=== PATIENT | female | born 1990 | race American Indian/Alaskan Native ===

== ENCOUNTER 2018-01-07 11:52 | Emergency (ER) | payer OTHER ==
[2018-01-07 13:40] LABS: Bilirubin,Urine NEG (Negative); Blood,Urine SM (Negative); Color,Urine Colorless (Yellow); Protein,Urine <15 mg/dL mg/dL (Negative); Urobilinogen,Urine < 2.0 mg/dL (<2.0); WBC,Urine < 1.0 /HPF (0.0-6.0)
[2018-01-07 13:43] LABS: HCG Qualitative,Urine Negative (Negative); RBC,Urine < 1.0 /HPF (0.0-6.0)
--- NOTE | 2018-01-07 14:13 | XRay Report ---
XRAY CHEST TWO VIEWS: 01/07/18 11:52:00 CLINICAL: Shortness of breath and cough. COMPARISON: None FINDINGS: Normal heart and pulmonary vasculature. The lungs are normally expanded and clear.Mild thoracic dextroscoliosis and otherwise normal bones. IMPRESSION: No acute cardiopulmonary process.
--- NOTE | 2018-01-07 14:18 | Emergency Department Report ---
Minor Respiratory - HPI Chief Complaint: Dyspnea/Respdistress Stated Complaint: CHEST PAIN/WEAK Time Seen by Provider: 01/07/18 13:00 Duration: 5 Days Severity: mild Minor Respiratory: Yes Able to Tolerate Fluids, Yes Cough, No Rhinorrhea, No Sore Throat, No Ear Pain, No Sick Contacts, No Hemoptysis, No Chest Pain, No Shortness of Breath, No Fever Other History: Patient states that she has had a nonproductive cough and some mild shortness of breath. The patient states there is little discomfort when she takes a deep breath. ED Review of Systems ROS: Stated complaint: CHEST PAIN/WEAK Other details as noted in HPI Comment: All other systems reviewed and negative ED Past Medical Hx - Past Medical History Previous Medical History?: No - Surgical History Past Surgical History?: No - Social History Smoking Status: Never Smoker - Medications Home Medications: Home Medications Medication Instructions Recorded Confirmed Last Taken Type Acetaminophen/Codeine [Tylenol #3] 1 tab PO Q6H PRN #12 tab 02/01/15 Unknown Rx Sulfamethoxazole/Trimethoprim 1 each PO Q12H #14 tablet 02/01/15 Unknown Rx [Bactrim DS TAB] ALBUTEROL Inhaler [ProAir HFA 2 puff IH QID PRN #1 inhalation 01/07/18 Unknown Rx Inhaler] predniSONE [Deltasone] 20 mg PO QDAY #5 tab 01/07/18 Unknown Rx Minor Respiratory Exam - Exam General: Vital signs noted. No distress. Alert and acting appropriately. HEENT: Yes Moist Mucous Membranes, No Pharyngeal Erythema, No Pharyngeal Exudates, No Rhinorrhea, No Conjuctival Injection, No Frontal Tenderness, No Maxillary Tenderness Ear: Neither TM Bulge, Neither TM Erythema, Neither EAC Pain, Neither EAC Discharge Neck: Yes Supple, No Adenopathy Lungs: Yes Good Air Exchange, No Wheezes, No Ronchi, No Stridor, No Cough, No Labored Respirations, No Retractions, No Use of Accessory Muscles, No Other Abnormal Lung Sounds Heart: Yes Regular, No Murmur Abdomen: Yes Normal Bowel Sounds, No Tenderness, No Peritoneal Signs Skin: No Rash, No Edema Neurologic: Alert and oriented, no deficits. Musculoskeletal: Unremarkable. ED Course Vital Signs 01/07/18 12:04 Temperature 99.2 F Pulse Rate 89 Respiratory 18 Rate Blood Pressure 140/77 O2 Sat by Pulse 99 Oximetry ED Medical Decision Making - Lab Data Lab Results 01/07/18 01/07/18 Range/Units 13:23 13:24 D-Dimer 222.70 (0-234) ng/mlDDU Urine Color Colorless (Yellow) Urine Turbidity Clear (Clear) Urine pH 7.0 (5.0-7.0) Ur Specific [place] 1.002 L (1.003-1.030) Urine Protein <15 mg/dl (Negative) mg/dL Urine Glucose (UA) Neg (Negative) mg/dL Urine Ketones Neg (Negative) mg/dL Urine Blood Sm (Negative) Urine Nitrite Neg (Negative) Urine Bilirubin Neg (Negative) Urine Urobilinogen < 2.0 (<2.0) mg/dL Ur Leukocyte Esterase Neg (Negative) Urine WBC (Auto) < 1.0 (0.0-6.0) /HPF Urine RBC (Auto) < 1.0 (0.0-6.0) /HPF U Epithel Cells (Auto) 1.0 (0-13.0) /HPF Urine HCG, Qual Negative (Negative) - EKG Data -: EKG Interpreted by Nc EKG shows normal: sinus rhythm, axis, intervals, QRS complexes, ST-T waves Rate: normal - EKG Data Interpretation: normal EKG - Radiology Data interpreted by vt: X-ray of the chest shows no acute process Critical care attestation.: If time is entered above; I have spent that time in minutes in the direct care of this critically ill patient, excluding procedure time. ED Disposition Clinical Impression: Acute bronchitis Qualifiers: Bronchitis organism: unspecified organism Qualified Code(s): J20.9 - Acute bronchitis, unspecified Disposition: DC- TO HOME OR SELFCARE Is pt being admited?: No Does the pt Need Aspirin: No Condition: Stable Instructions: Acute Bronchitis (ED) Referrals: PRIMARY CARE, [Primary Care Provider] - 3-5 Days Forms: Work/School Release Form(ED) Time of Disposition: 14:17
[2018-01-07 14:25] VITALS: BP 136/74
== END 2018-01-07 14:24 | disposition home or self-care (01) ==
LOC: ED 11:52
DX: J20.9 Acute bronchitis, unspecified (principal)
CPT/HCPCS: 36415; 71046; 81001; 81025; 85379; 93005; 93010; 99284

== ENCOUNTER 2019-03-06 17:03 | Emergency (ER) | payer OTHER ==
[2019-03-06 19:29] VITALS: BP 115/62
--- NOTE | 2019-03-06 19:31 | Event Note ---
ED Screening Note Date of service: 03/06/19 Time: 19:29 ED Screening Note: This is a 28 y.o. F. that presents to the ER with mid back pain since last night. Reports wearing a waist operations trainer to help support back. Pain worse with movement. This initial assessment/diagnostic orders/clinical plan/treatment(s) is/are subject to change based on patients health status, clinical progression and re- assessment by fellow clinical providers in the ED. Further treatment and workup at subsequent clinical providers discretion. Patient/guardian urged not to elope from the ED as their condition may be serious if not clinically assessed and managed. Initial orders include: XR thoracic spine
--- NOTE | 2019-03-06 19:55 | XRay Report ---
THORACIC SPINE 2 VIEWS. INDICATION / CLINICAL INFORMATION: mid back pain COMPARISON: None available. FINDINGS: BONES / JOINT(S): No acute fracture or subluxation. No significant arthritis. SOFT TISSUES: No significant abnormality. ADDITIONAL FINDINGS: None. Signer Name: Gerard Chambers MD Signed: 03/06/2019 7:50 PM Workstation Name: [id number]
[2019-03-06 20:51] LABS: Bilirubin,Urine NEG (Negative); Blood,Urine NEG (Negative); Color,Urine Yellow (Yellow); Mucus,Urine 3+ /HPF; Protein,Urine <15 mg/dL mg/dL (Negative); Urobilinogen,Urine < 2.0 mg/dL (<2.0)
--- NOTE | 2019-03-06 22:53 | Emergency Department Report ---
ED General Adult HPI - General Chief complaint: Back Pain/Injury Stated complaint: BACK PAIN/EAR PAIN Time Seen by Provider: 03/06/19 19:27 Source: patient Mode of arrival: Ambulatory Limitations: No Limitations - History of Present Illness Radiation: non-radiation Consistency: constant Improves with: none Worsens with: none Associated Symptoms: denies other symptoms Treatments Prior to Arrival: none - Related Data Previous Rx's Medication Instructions Recorded Last Taken Type Acetaminophen/Codeine [Tylenol #3] 1 tab PO Q6H PRN #12 tab 02/01/15 Unknown Rx Sulfamethoxazole/Trimethoprim 1 each PO Q12H #14 tablet 02/01/15 Unknown Rx [Bactrim DS TAB] ALBUTEROL Inhaler (OR & NICU) 2 puff IH QID PRN #1 inhalation 01/07/18 Unknown Rx [ProAir HFA Inhaler] predniSONE [Deltasone] 20 mg PO QDAY #5 tab 01/07/18 Unknown Rx Ibuprofen [Motrin 800 MG tab] 800 mg PO Q8HR PRN #20 tablet 06/04/18 Unknown Rx Ketorolac [Toradol] 10 mg PO Q6H PRN #15 tablet 03/06/19 Unknown Rx methOCARBAMOL [Robaxin] 750 mg PO Q8H PRN #21 tablet 03/06/19 Unknown Rx Allergies Allergy/AdvReac Type Severity Reaction Status Date / Time No Known Allergies Allergy Verified 02/01/15 19:37 ED Review of Systems ROS: Stated complaint: BACK PAIN/EAR PAIN Other details as noted in HPI ED Past Medical Hx - Past Medical History Previous Medical History?: No - Surgical History Past Surgical History?: No - Social History Smoking Status: Never Smoker Substance Use Type: Alcohol - Medications Home Medications: Home Medications Medication Instructions Recorded Confirmed Last Taken Type Acetaminophen/Codeine [Tylenol #3] 1 tab PO Q6H PRN #12 tab 02/01/15 Unknown Rx Sulfamethoxazole/Trimethoprim 1 each PO Q12H #14 tablet 02/01/15 Unknown Rx [Bactrim DS TAB] ALBUTEROL Inhaler (OR & NICU) 2 puff IH QID PRN #1 inhalation 01/07/18 Unknown Rx [ProAir HFA Inhaler] predniSONE [Deltasone] 20 mg PO QDAY #5 tab 01/07/18 Unknown Rx Ibuprofen [Motrin 800 MG tab] 800 mg PO Q8HR PRN #20 tablet 06/04/18 Unknown Rx Ketorolac [Toradol] 10 mg PO Q6H PRN #15 tablet 03/06/19 Unknown Rx methOCARBAMOL [Robaxin] 750 mg PO Q8H PRN #21 tablet 03/06/19 Unknown Rx ED Physical Exam - General Limitations: No Limitations General appearance: alert, in no apparent distress - Head Head exam: Present: atraumatic, normocephalic - Eye Eye exam: Present: normal appearance - ENT ENT exam: Present: mucous membranes moist - Neck Neck exam: Present: normal inspection - Respiratory Respiratory exam: Present: normal lung sounds bilaterally. Absent: respiratory distress - Cardiovascular Cardiovascular Exam: Present: regular rate, normal rhythm. Absent: systolic murmur, diastolic murmur, rubs, gallop - GI/Abdominal GI/Abdominal exam: Present: soft, normal bowel sounds - Extremities Exam Extremities exam: Present: normal inspection - Back Exam Back exam: Present: normal inspection, tenderness, paraspinal tenderness (sinuses the right latissimus dorsi region with palpation. Pain with range of motion. No LFTs were ordered or thrills. No step off. No rashes. No bruising or abrasions. Pain with palpation noted. No CVA tenderness.) - Neurological Exam Neurological exam: Present: alert, oriented X3 - Psychiatric Psychiatric exam: Present: normal affect, normal mood - Skin Skin exam: Present: warm, dry, intact, normal color. Absent: rash ED Course Vital Signs 03/06/19 19:28 Temperature 98.1 F Pulse Rate 71 Respiratory 18 Rate Blood Pressure 115/62 O2 Sat by Pulse 98 Oximetry Critical care attestation.: If time is entered above; I have spent that time in minutes in the direct care of this critically ill patient, excluding procedure time. ED Disposition Clinical Impression: Back pain, Strain of latissimus dorsi muscle Disposition: - TO HOME OR SELFCARE Is pt being admited?: No Does the pt Need Aspirin: No Condition: Stable Instructions: Muscle Strain (ED), Musculoskeletal Pain (ED), Thoracic Pain (ED) Prescriptions: methOCARBAMOL [Robaxin] 750 mg PO Q8H PRN #21 tablet PRN Reason: Spasms Ketorolac [Toradol] 10 mg PO Q6H PRN #15 tablet PRN Reason: Pain Referrals: PHYLLIS RUFFIN MD [Staff Physician] - 3-5 Days
== END 2019-03-06 23:15 | disposition home or self-care (01) ==
LOC: ED 17:03
DX: S39.012A Strain of muscle, fascia and tendon of lower back, initial encounter (principal); X58.XXXA Exposure to other specified factors, initial encounter; Y93.89 Activity, other specified; Y92.89 Other specified places as the place of occurrence of the external cause; Y99.8 Other external cause status
CPT/HCPCS: 72070; 81001

== ENCOUNTER 2019-06-24 02:47 | Emergency (ER) | payer OTHER ==
[2019-06-24 02:56] VITALS: BP 126/66
--- NOTE | 2019-06-24 03:06 | Emergency Department Report ---
- General Chief complaint: Skin/Abscess/Foreign Body Stated complaint: CYST Time Seen by Provider: 06/24/19 03:05 Source: patient Mode of arrival: Ambulatory Limitations: No Limitations - History of Present Illness Initial comments: 29-year-old -Citizen Of The [place] female presents to the emergency room for boil on her vaginal labia 1 day. Patient admits that it's painful denies any drainage. She does admit that she is . Last menstrual period was 05/22/2019. Patient denies any vaginal bleeding or vaginal discharge. She reports she's had this once before. MD complaint: abscess/boil Onset/Timin -: days(s) Tetanus Up to Date: yes Location: genitals Severity scale (0 -10): 10 Quality: sharp Consistency: constant Improves with: none Worsens with: palpation Associated symptoms: denies other symptoms Treatments Prior to Arrival: none - Related Data Previous Rx's Medication Instructions Recorded Last Taken Type Acetaminophen/Codeine [Tylenol #3] 1 tab PO Q6H PRN #12 tab 02/01/15 Unknown Rx Sulfamethoxazole/Trimethoprim 1 each PO Q12H #14 tablet 02/01/15 Unknown Rx [Bactrim DS TAB] Albuterol INH(or & Nicu Only) 2 puff IH QID PRN #1 inhalation 01/07/18 Unknown Rx [ProAir HFA Inhaler] predniSONE [Deltasone] 20 mg PO QDAY #5 tab 01/07/18 Unknown Rx Ibuprofen [Motrin 800 MG tab] 800 mg PO Q8HR PRN #20 tablet 06/04/18 Unknown Rx Ketorolac [Toradol] 10 mg PO Q6H PRN #15 tablet 03/06/19 Unknown Rx methOCARBAMOL [Robaxin] 750 mg PO Q8H PRN #21 tablet 03/06/19 Unknown Rx Clindamycin [Clindamycin CAP] 300 mg PO Q8H #21 cap 06/24/19 Unknown Rx Allergies Allergy/AdvReac Type Severity Reaction Status Date / Time No Known Allergies Allergy Verified 02/01/15 19:37 Abscess Boil HPI - HPI Chief Complaint: Skin/Abscess/Foreign Body Stated Complaint: CYST Time Seen by Provider: 06/24/19 03:05 Home Medications: Previous Rx's Medication Instructions Recorded Last Taken Type Acetaminophen/Codeine [Tylenol #3] 1 tab PO Q6H PRN #12 tab 02/01/15 Unknown Rx Sulfamethoxazole/Trimethoprim 1 each PO Q12H #14 tablet 02/01/15 Unknown Rx [Bactrim DS TAB] Albuterol INH(or & Nicu Only) 2 puff IH QID PRN #1 inhalation 01/07/18 Unknown Rx [ProAir HFA Inhaler] predniSONE [Deltasone] 20 mg PO QDAY #5 tab 01/07/18 Unknown Rx Ibuprofen [Motrin 800 MG tab] 800 mg PO Q8HR PRN #20 tablet 06/04/18 Unknown Rx Ketorolac [Toradol] 10 mg PO Q6H PRN #15 tablet 03/06/19 Unknown Rx methOCARBAMOL [Robaxin] 750 mg PO Q8H PRN #21 tablet 03/06/19 Unknown Rx Clindamycin [Clindamycin CAP] 300 mg PO Q8H #21 cap 06/24/19 Unknown Rx Allergies/Adverse Reactions: Allergies Allergy/AdvReac Type Severity Reaction Status Date / Time No Known Allergies Allergy Verified 02/01/15 19:37 ED Review of Systems ROS: Stated complaint: CYST Other details as noted in HPI Comment: All other systems reviewed and negative ED Past Medical Hx - Past Medical History Previous Medical History?: No - Surgical History Past Surgical History?: No - Social History Smoking Status: Never Smoker Substance Use Type: None - Medications Home Medications: Home Medications Medication Instructions Recorded Confirmed Last Taken Type Acetaminophen/Codeine [Tylenol #3] 1 tab PO Q6H PRN #12 tab 02/01/15 Unknown Rx Sulfamethoxazole/Trimethoprim 1 each PO Q12H #14 tablet 02/01/15 Unknown Rx [Bactrim DS TAB] Albuterol INH(or & Nicu Only) 2 puff IH QID PRN #1 inhalation 01/07/18 Unknown Rx [ProAir HFA Inhaler] predniSONE [Deltasone] 20 mg PO QDAY #5 tab 01/07/18 Unknown Rx Ibuprofen [Motrin 800 MG tab] 800 mg PO Q8HR PRN #20 tablet 06/04/18 Unknown Rx Ketorolac [Toradol] 10 mg PO Q6H PRN #15 tablet 03/06/19 Unknown Rx methOCARBAMOL [Robaxin] 750 mg PO Q8H PRN #21 tablet 03/06/19 Unknown Rx Clindamycin [Clindamycin CAP] 300 mg PO Q8H #21 cap 06/24/19 Unknown Rx ED Physical Exam - General Limitations: No Limitations General appearance: alert, in no apparent distress - Head Head exam: Present: atraumatic, normocephalic - Eye Eye exam: Present: normal appearance - ENT ENT exam: Present: mucous membranes moist - Neck Neck exam: Present: normal inspection, full ROM - Extremities Exam Extremities exam: Present: normal inspection, full ROM - Back Exam Back exam: Present: normal inspection - Neurological Exam Neurological exam: Present: alert, oriented X3 - Psychiatric Psychiatric exam: Present: normal affect, normal mood - Expanded Skin Exam Expanded Type of lesion: Present: abscess Distribution of rash: genitals (left labia majora Bartholin) Description of rash: Present: tenderness, swelling, indurated ED Course Vital Signs 06/24/19 02:50 Temperature 98.4 F Pulse Rate 97 H Respiratory 18 Rate Blood Pressure 126/66 O2 Sat by Pulse 100 Oximetry - I & D Left Vagina Type of Procedure: Simple Site: 2x1 cm Blade Size: 11 I & D Procedure: betadine prep, sterile drapes applied Progress: Patient tolerated procedure well. Was not able to get any purulent discharge or any blood return. ED Medical Decision Making - Medical Decision Making 29-year-old -Citizen Of The [place] female presents to the emergency room for boil on her vaginal labia 1 day. Patient admits that it's painful denies any drainage. She does admit that she is . Last menstrual period was 05/22/2019. Patient denies any vaginal bleeding or vaginal discharge. She reports she's had this once before. Incision and drainage attempted. No discharge. Only blood. I discussed the patient placed on antibiotics warm vaginal soaks and warm moist compresses. Discussed the patient to follow-up with her [employer]ALUATION MANAGER. In verbalize understanding Critical care attestation.: If time is entered above; I have spent that time in minutes in the direct care of this critically ill patient, excluding procedure time. ED Disposition Clinical Impression: Bartholin gland cyst Disposition: DC-01 TO HOME OR SELFCARE Is pt being admited?: No Does the pt Need Aspirin: No Condition: Stable Instructions: Bartholin Cyst (ED), Incision and Drainage (ED) Additional Instructions: Pleat antibiotics as prescribed. Tylenol for pain management. Warm compresses or warm sitz bath. Follow up with her [employer] OPERATION EVALUATION MANAGER on Wednesday. Prescriptions: Clindamycin [Clindamycin CAP] 300 mg PO Q8H #21 cap Referrals: KEREN CANTOR MD [Staff Physician] - 3-5 Days Forms: Work/School Release Form(ED)
[2019-06-24] MEDS ORDERED: ACETAMINOPHEN 325 MG TAB PO ONE (04:55)
== END 2019-06-24 05:18 | disposition home or self-care (01) ==
LOC: ED 02:47
DX: N75.0 Cyst of Bartholin's gland (principal); Z79.899 Other long term (current) drug therapy

== ENCOUNTER 2020-02-16 05:26 | Emergency (ER) | payer BC ==
[2020-02-16 06:16] LABS: Basophils # (Auto) 0.1 K/mm3 (0.0-0.1); Basophils % (Auto) 0.7 % (0.0-1.8); Eosinophils # (Auto) 0.1 K/mm3 (0.0-0.4); Eosinophils % (Auto) 0.8 % (0.0-4.3); Hematocrit 34.6 % (30.3-42.9); Hemoglobin 11.9 gm/dl (10.1-14.3); Lymphocytes # (Auto) 1.9 K/mm3 (1.2-5.4); Lymphocytes % (Auto) 24.6 % (13.4-35.0); Mean Corpuscular HGB Conc 34 % (30-34); Mean Corpuscular Volume 87 fl (79-97); Monocytes # (Auto) 0.6 K/mm3 (0.0-0.8); Monocytes % (Auto) 7.5 % (0.0-7.3); Platelet Count 262 K/mm3 (140-440); Red Blood Count 3.98 M/mm3 (3.65-5.03); Red Cell Distribution Width 14.3 % (13.2-15.2)
[2020-02-16 07:23] LABS: Bacteria,Urine 1+ /HPF (Negative); Bilirubin,Urine NEG (Negative); Blood,Urine NEG (Negative); Color,Urine Yellow (Yellow); Mucus,Urine 2+ /HPF; Protein,Urine <15 mg/dL mg/dL (Negative); Urobilinogen,Urine < 2.0 mg/dL (<2.0)
[2020-02-16 07:55] LABS: Blood Urea Nitrogen 9 mg/dL (7-17); Calcium 9.5 mg/dL (8.4-10.2); Hemolysis Index 4
[2020-02-16 07:57] LABS: BUN/Creatinine Ratio 15
[2020-02-16] MEDS ORDERED: ACETAMINOPHEN 325 MG TAB PO ONE (07:57)
--- NOTE | 2020-02-16 07:57 | Ultrasound Report ---
ULTRASOUND OBSTETRIC INDICATION / CLINICAL INFORMATION: , bleeding, pain. Clinical Gestational Age (GA): TECHNIQUE: Transabdominal. COMPARISON: None available. FINDINGS: There is a single intrauterine . Biparietal Diameter = 2.7 cm = 14 weeks, 5 day(s). Head Circumference = 10.2 cm = 14 weeks, 6 day(s). Abdominal Circumference = 7.6 cm = 14 weeks, 1 day(s). Femur Length = 1.5 cm = 14 weeks, 3 day(s). Average Ultrasound Age (AUA) = 14 weeks, 3 day(s). Heart Rate: 150 to beats per minute. Estimated Weight in grams (if calculated): Estimated Weight Growth Percentile (if calculated): Cervix: closed. Length in cm (if measured): 4 cm IMPRESSION: 1. Single, living intrauterine with estimated sonographic age of 14 weeks, 3 day(s). 2. No significant sonographic abnormality. Signer Name: Rg Adams MD Signed: 02/16/2020 7:52 AM Workstation Name: [id number]
--- NOTE | 2020-02-16 08:09 | Emergency Department Report ---
ED General Adult HPI - General Chief complaint: Back Pain/Injury Stated complaint: LOWER ABD PAIN/RT SIDE Time Seen by Provider: 02/16/20 07:08 Source: patient Mode of arrival: Ambulatory Limitations: No Limitations - History of Present Illness Initial comments: Patient is a 29-year-old female presents emergency room with right thigh pain that began this morning when she woke up. Yesterday she was at work on her feet all day and began having discomfort in her lower back and lower abdominal but when she got home and rested they both self resolved. 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 she states this morning when she was getting ready to go to work she felt some discomfort in her right thigh and some mild abdominal cramping. She denies any leg swelling or calf pain. she denies any fall or injury. she denies any fever, vomiting, diarrhea, dysuria, abnormal vaginal discharge, numbness, weakness, vaginal bleeding, bowel or bladder discomfort, dysuria, urinary symptoms. She is currently 14 weeks . She states that her OB is at [facility]. She denies any past medical history or allergies to medications. - Related Data Previous Rx's Medication Instructions Recorded Last Taken Type Acetaminophen/Codeine [Tylenol #3] 1 tab PO Q6H PRN #12 tab 02/01/15 Unknown Rx Sulfamethoxazole/Trimethoprim 1 each PO Q12H #14 tablet 02/01/15 Unknown Rx [Bactrim DS TAB] Albuterol Mdi (or & Nicu Only) 2 puff IH QID PRN #1 inhalation 01/07/18 Unknown Rx [ProAir HFA Inhaler] predniSONE [Deltasone] 20 mg PO QDAY #5 tab 01/07/18 Unknown Rx Ibuprofen [Motrin 800 MG tab] 800 mg PO Q8HR PRN #20 tablet 06/04/18 Unknown Rx Ketorolac [Toradol] 10 mg PO Q6H PRN #15 tablet 03/06/19 Unknown Rx methOCARBAMOL [Robaxin] 750 mg PO Q8H PRN #21 tablet 03/06/19 Unknown Rx Clindamycin [Clindamycin CAP] 300 mg PO Q8H #21 cap 06/24/19 Unknown Rx Loratadine [Claritin] 10 mg PO DAILY #15 tablet 02/08/20 Unknown Rx methylPREDNISolone [Medrol 4MG 4 mg PO ONCE #1 tab.ds.pk 02/08/20 Unknown Rx DOSEPAK (21 tabs)] Allergies Allergy/AdvReac Type Severity Reaction Status Date / Time No Known Allergies Allergy Verified 02/01/15 19:37 ED Review of Systems ROS: Stated complaint: LOWER ABD PAIN/RT SIDE Other details as noted in HPI Comment: All other systems reviewed and negative ED Past Medical Hx - Past Medical History Previous Medical History?: No - Surgical History Past Surgical History?: No - Social History Smoking Status: Never Smoker Substance Use Type: None - Medications Home Medications: Home Medications Medication Instructions Recorded Confirmed Last Taken Type Acetaminophen/Codeine [Tylenol #3] 1 tab PO Q6H PRN #12 tab 02/01/15 Unknown Rx Sulfamethoxazole/Trimethoprim 1 each PO Q12H #14 tablet 02/01/15 Unknown Rx [Bactrim DS TAB] Albuterol Mdi (or & Nicu Only) 2 puff IH QID PRN #1 inhalation 01/07/18 Unknown Rx [ProAir HFA Inhaler] predniSONE [Deltasone] 20 mg PO QDAY #5 tab 01/07/18 Unknown Rx Ibuprofen [Motrin 800 MG tab] 800 mg PO Q8HR PRN #20 tablet 06/04/18 Unknown Rx Ketorolac [Toradol] 10 mg PO Q6H PRN #15 tablet 03/06/19 Unknown Rx methOCARBAMOL [Robaxin] 750 mg PO Q8H PRN #21 tablet 03/06/19 Unknown Rx Clindamycin [Clindamycin CAP] 300 mg PO Q8H #21 cap 06/24/19 Unknown Rx Loratadine [Claritin] 10 mg PO DAILY #15 tablet 02/08/20 Unknown Rx methylPREDNISolone [Medrol 4MG 4 mg PO ONCE #1 tab.ds.pk 02/08/20 Unknown Rx DOSEPAK (21 tabs)] ED Physical Exam - General Limitations: No Limitations General appearance: alert, in no apparent distress - Head Head exam: Present: atraumatic, normocephalic - Eye Eye exam: Present: normal appearance - ENT ENT exam: Present: mucous membranes moist - Neck Neck exam: Present: normal inspection, full ROM. Absent: tenderness - Respiratory Respiratory exam: Present: normal lung sounds bilaterally. Absent: respiratory distress, wheezes, rales, rhonchi, stridor, chest wall tenderness, accessory muscle use, decreased breath sounds, prolonged expiratory - Cardiovascular Cardiovascular Exam: Present: regular rate, normal rhythm, normal heart sounds. Absent: systolic murmur, diastolic murmur, rubs, gallop - GI/Abdominal GI/Abdominal exam: Present: soft, normal bowel sounds. Absent: distended, tenderness, guarding, rebound, rigid - Extremities Exam Extremities exam: Present: normal inspection, normal capillary refill, other (FROM of the BLE without difficulty or pain elicited, no ttp of the BLE, no deformity, no calf ttp, no pedal edema, neurovascularly intact). Absent: full ROM, tenderness, pedal edema, joint swelling, calf tenderness - Back Exam Back exam: Present: normal inspection, full ROM. Absent: CVA tenderness (R), CVA tenderness (L), paraspinal tenderness, vertebral tenderness - Neurological Exam Neurological exam: Present: alert, oriented X3, CN II-XII intact, normal gait. Absent: motor sensory deficit - Psychiatric Psychiatric exam: Present: normal affect, normal mood - Skin Skin exam: Present: warm, dry, intact ED Course Vital Signs 02/16/20 02/16/20 02/16/20 05:30 08:13 08:25 Temperature 98.2 F Pulse Rate 76 Respiratory 16 18 18 Rate Blood Pressure 109/56 O2 Sat by Pulse 98 Oximetry 02/16/20 08:28 Temperature Pulse Rate 75 Respiratory Rate Blood Pressure 108/62 O2 Sat by Pulse 99 Oximetry ED Medical Decision Making - Lab Data Result diagrams: 02/16/20 06:03 02/16/20 07:28 Lab Results 02/16/20 02/16/20 02/16/20 Range/Units 06:03 06:03 06:03 WBC 7.8 (4.5-11.0) K/mm3 RBC 3.98 (3.65-5.03) M/mm3 Hgb 11.9 (10.1-14.3) gm/dl Hct 34.6 (30.3-42.9) % MCV 87 (79-97) fl MCH 30 (28-32) pg MCHC 34 (30-34) % RDW 14.3 (13.2-15.2) % Plt Count 262 (140-440) K/mm3 Lymph % (Auto) 24.6 (13.4-35.0) % Toole % (Auto) 7.5 H (0.0-7.3) % Eos % (Auto) 0.8 (0.0-4.3) % Baso % (Auto) 0.7 (0.0-1.8) % Lymph # 1.9 (1.2-5.4) K/mm3 Toole # 0.6 (0.0-0.8) K/mm3 Eos # 0.1 (0.0-0.4) K/mm3 Baso # 0.1 (0.0-0.1) K/mm3 Seg Neutrophils % 66.4 (40.0-70.0) % Seg Neutrophils # 5.2 (1.8-7.7) K/mm3 Sodium (137-145) mmol/L Potassium (3.6-5.0) mmol/L Chloride (98-107) mmol/L Carbon Dioxide (22-30) mmol/L Anion Gap mmol/L BUN (7-17) mg/dL Creatinine (0.6-1.2) mg/dL Estimated GFR ml/min BUN/Creatinine Ratio % Glucose (65-100) mg/dL Calcium (8.4-10.2) mg/dL HCG, Quant 39785 H (0-4) mIU/mL Urine Color (Yellow) Urine Turbidity (Clear) Urine pH (5.0-7.0) Ur Specific Harrah (1.003-1.030) Urine Protein (Negative) mg/dL Urine Glucose (UA) (Negative) mg/dL Urine Ketones (Negative) mg/dL Urine Blood (Negative) Urine Nitrite (Negative) Urine Bilirubin (Negative) Urine Urobilinogen (<2.0) mg/dL Ur Leukocyte Esterase (Negative) Urine WBC (Auto) (0.0-6.0) /HPF Urine RBC (Auto) (0.0-6.0) /HPF U Epithel Cells (Auto) (0-13.0) /HPF Urine Bacteria (Auto) (Negative) /HPF Urine Mucus /HPF Blood Type B POSITIVE 02/16/20 02/16/20 Range/Units 06:10 07:28 WBC (4.5-11.0) K/mm3 RBC (3.65-5.03) M/mm3 Hgb (10.1-14.3) gm/dl Hct (30.3-42.9) % MCV (79-97) fl MCH (28-32) pg MCHC (30-34) % RDW (13.2-15.2) % Plt Count (140-440) K/mm3 Lymph % (Auto) (13.4-35.0) % Toole % (Auto) (0.0-7.3) % Eos % (Auto) (0.0-4.3) % Baso % (Auto) (0.0-1.8) % Lymph # (1.2-5.4) K/mm3 Toole # (0.0-0.8) K/mm3 Eos # (0.0-0.4) K/mm3 Baso # (0.0-0.1) K/mm3 Seg Neutrophils % (40.0-70.0) % Seg Neutrophils # (1.8-7.7) K/mm3 Sodium 137 (137-145) mmol/L Potassium 3.4 L (3.6-5.0) mmol/L Chloride 101.5 (98-107) mmol/L Carbon Dioxide 25 (22-30) mmol/L Anion Gap 14 mmol/L BUN 9 (7-17) mg/dL Creatinine 0.6 (0.6-1.2) mg/dL Estimated GFR > 60 ml/min BUN/Creatinine Ratio 15 % Glucose 124 H (65-100) mg/dL Calcium 9.5 (8.4-10.2) mg/dL HCG, Quant (0-4) mIU/mL Urine Color Yellow (Yellow) Urine Turbidity Cloudy (Clear) Urine pH 6.0 (5.0-7.0) Ur Specific [place] 1.021 (1.003-1.030) Urine Protein <15 mg/dl (Negative) mg/dL Urine Glucose (UA) Neg (Negative) mg/dL Urine Ketones Neg (Negative) mg/dL Urine Blood Neg (Negative) Urine Nitrite Neg (Negative) Urine Bilirubin Neg (Negative) Urine Urobilinogen < 2.0 (<2.0) mg/dL Ur Leukocyte Esterase Sm (Negative) Urine WBC (Auto) 4.0 (0.0-6.0) /HPF Urine RBC (Auto) 1.0 (0.0-6.0) /HPF U Epithel Cells (Auto) 3.0 (0-13.0) /HPF Urine Bacteria (Auto) 1+ (Negative) /HPF Urine Mucus 2+ /HPF Blood Type - Radiology Data Radiology results: report reviewed ULTRASOUND OBSTETRIC INDICATION / CLINICAL INFORMATION: , bleeding, pain. Clinical Gestational Age (GA): TECHNIQUE: Transabdominal. COMPARISON: None available. FINDINGS: There is a single intrauterine . Biparietal Diameter = 2.7 cm = 14 weeks, 5 day(s). Head Circumference = 10.2 cm = 14 weeks, 6 day(s). Abdominal Circumference = 7.6 cm = 14 weeks, 1 day(s). Femur Length = 1.5 cm = 14 weeks, 3 day(s). Average Ultrasound Age (AUA) = 14 weeks, 3 day(s). Heart Rate: 150 to beats per minute. Estimated Weight in grams (if calculated): Estimated Weight Growth Percentile (if calculated): Cervix: closed. Length in cm (if measured): 4 cm IMPRESSION: 1. Single, living intrauterine with estimated sonographic age of 14 weeks, 3 day(s). 2. No significant sonographic abnormality. Signer Name: Rg Adams MD Signed: 02/16/2020 7:52 AM Workstation Name: [id number] Transcribed By: WG Dictated By: Rg Adams MD Electronically Authenticated By: Rg Adams MD Signed Date/Time: 02/16/20751 DD/ 9 TD/TT: - Medical Decision Making Patient is a 29-year-old female presents emergency room with right thigh pain that began this morning when she woke up. Yesterday she was at work on her feet all day and began having discomfort in her lower back and lower abdominal but when she got home and rested they both self resolved. 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 she states this morning when she was getting ready to go to work she felt some discomfort in her right thigh and some mild abdominal cramping. She denies any leg swelling or calf pain. she denies any fall or injury. she denies any fever, vomiting, diarrhea, dysuria, abnormal vaginal discharge, numbness, weakness, vaginal bleeding, bowel or bladder discomfort, dysuria, urinary symptoms. She is currently 14 weeks . She states that her OB is at [facility] She denies any past medical history or allergies to medications. on exam: FROM of the BLE without difficulty or pain elicited, no ttp of the BLE, no deformity, no calf ttp, no pedal edema, neurovascularly intact, no abd ttp, no midline or paraspinal C-spine, T-spine or L-spine ttp, no step offs, no deformities, no CVAT, no neuro deficits. she has no clinical signs of DVT. [place] [address]. mild decrease in potassium, advised pt to increase diet in potassium rich foods. UA is WNL. pt is B positive. she denies any vaginal bleeding. OB US: 1. Single, living intrauterine with estimated sonographic age of 14 weeks, 3 day(s). 2. No significant sonographic abnormality. Discussed all results with patient and answered questions. Patient was given her ultrasound report. Discussed supportive care and symptomatic treatment with patient. Advised patient that she may take Tylenol [id number]. Also advised patient to wear comfortable shoes and to put orthopedic inserts into her shoes. Advised patient May take Tylenol as needed for discomfort. May use ice pack for 15 minutes at a time, heating pad 15 minutes at a time, rest, Epson salt bath. Follow-up with a primary care doctor. Follow-up with your [facility]. Return to emergency room immediately for any new or worsening symptoms including but not limited to worsening pain, bleeding, leg swelling, chest pain, shortness of breath, etc. - Differential Diagnosis UTI, muscle strain, round ligament pain, DDD, bulging disc, ALFREDO Critical care attestation.: If time is entered above; I have spent that time in minutes in the direct care of this critically ill patient, excluding procedure time. ED Disposition Clinical Impression: Abdominal cramping, and not yet delivered in second trimester Leg pain Qualifiers: Laterality: right Qualified Code(s): M79.604 - Pain in right leg Disposition: DC-01 TO HOME OR SELFCARE Is pt being admited?: No Does the pt Need Aspirin: No Condition: Stable Instructions: Muscle Strain (ED), Abdominal Pain in (ED) Additional Instructions: May take Tylenol as needed for discomfort. May use ice pack for 15 minutes at a time, heating pad 15 minutes at a time, rest, Epson salt bath. Follow-up with a primary care doctor. Follow-up with your [facility]. Return to emergency room immediately for any new or worsening symptoms including but not limited to worsening pain, bleeding, leg swelling, chest pain, shortness of breath, etc. Referrals: [facility] [Provider Group] - 2-3 Days PRIMARY CARE,MD [Primary Care Provider] - 2-3 Days Time of Disposition: 08:11 Print Language: [place]OU[place] KORE[place]
[2020-02-16 08:43] VITALS: BP 108/62
== END 2020-02-16 08:28 | disposition home or self-care (01) ==
LOC: ED 05:26
DX: O26.892 Other specified pregnancy related conditions, second trimester (principal); R10.2 Pelvic and perineal pain; M79.604 Pain in right leg; Z3A.14 14 weeks gestation of pregnancy; Z79.899 Other long term (current) drug therapy
CPT/HCPCS: 36415; 76805; 80048; 81001; 84702; 85025; 86900; 86901

== ENCOUNTER 2020-08-27 14:07 | Emergency (ER) | payer BC, MEDICAID ==
[2020-08-27 14:44] VITALS: BP 119/71
--- NOTE | 2020-08-27 15:17 | Emergency Department Report ---
ED General Adult HPI - General Chief complaint: Skin Rash Stated complaint: BREAKOUT RASH Time Seen by Provider: 08/27/20 14:52 Source: patient Mode of arrival: Ambulatory Limitations: No Limitations - History of Present Illness Initial comments: 30-year-old -[place] female patient presents with complaints of diffuse itchy rash x4 days. She denies any recent hotel stays, however states she was discharged from the hospital about 5 days ago after giving . She denies any changes in her products, fever/chills/sweats, cough, shortness of breath, or drainage from the rash. She has not tried any OTC medications for his symptoms per patient. She states her may possibly have a rash, however she is unsure. - Related Data Home Medications Medication Instructions Recorded Confirmed Last Taken Plus Tablet 1 tab PO DAILY 08/20/20 08/20/20 1 Day Ago ~08/19/20 Previous Rx's Medication Instructions Recorded Last Taken Type methylPREDNISolone [Medrol 4MG 4 mg PO ONCE #1 tab.ds.pk 02/08/20 1 Day Ago Rx DOSEPAK (21 tabs)] ~08/19/20 Ferrous Sulfate [Feosol 325 MG tab] 325 mg PO QDAY #30 tablet 08/22/20 Unknown Rx Ibuprofen [Motrin] 600 mg PO Q6H PRN #60 tablet 08/22/20 Unknown Rx Famotidine [Pepcid] 20 mg PO BID PRN #20 tablet 08/27/20 Unknown Rx Loratadine [Claritin] 10 mg PO QDAY PRN #10 tablet 08/27/20 Unknown Rx Permethrin 5% [Acticin 5% CREAM] 1 applicatio TP ONCE #1 tube 08/27/20 Unknown Rx Triamcinolone Acetonide 15 gm TP TID PRN 7 Days #2 tube 08/27/20 Unknown Rx Allergies Allergy/AdvReac Type Severity Reaction Status Date / Time No Known Allergies Allergy Verified 02/01/15 19:37 ED Review of Systems ROS: Stated complaint: BREAKOUT RASH Other details as noted in HPI Constitutional: denies: chills, fever, malaise Respiratory: denies: cough, shortness of breath Musculoskeletal: denies: joint swelling, arthralgia Skin: rash ED Past Medical Hx - Past Medical History Hx Hypertension: No Hx Heart Attack/AMI: No Hx Diabetes: No Hx Deep Vein Thrombosis: No Hx Liver Disease: No Hx Renal Disease: No Hx Sickle Cell Disease: No Hx Seizures: No Hx Asthma: No Hx COPD: No Hx HIV: No - Surgical History Hx Pacemaker: No Hx Internal Defibrillator: No - Social History Smoking Status: Never Smoker Substance Use Type: None - Medications Home Medications: Home Medications Medication Instructions Recorded Confirmed Last Taken Type methylPREDNISolone [Medrol 4MG 4 mg PO ONCE #1 tab.ds.pk 02/08/20 08/20/20 1 Day Ago Rx DOSEPAK (21 tabs)] ~08/19/20 Plus Tablet 1 tab PO DAILY 08/20/20 08/20/20 1 Day Ago History ~08/19/20 Ferrous Sulfate [Feosol 325 MG tab] 325 mg PO QDAY #30 tablet 08/22/20 Unknown Rx Ibuprofen [Motrin] 600 mg PO Q6H PRN #60 tablet 08/22/20 Unknown Rx Famotidine [Pepcid] 20 mg PO BID PRN #20 tablet 08/27/20 Unknown Rx Loratadine [Claritin] 10 mg PO QDAY PRN #10 tablet 08/27/20 Unknown Rx Permethrin 5% [Acticin 5% CREAM] 1 applicatio TP ONCE #1 tube 08/27/20 Unknown Rx Triamcinolone Acetonide 15 gm TP TID PRN 7 Days #2 tube 08/27/20 Unknown Rx ED Physical Exam - General Limitations: No Limitations General appearance: alert, in no apparent distress - Head Head exam: Present: atraumatic, normocephalic - Eye Eye exam: Present: normal appearance. Absent: scleral icterus - Respiratory Respiratory exam: Absent: respiratory distress - Cardiovascular Cardiovascular Exam: Present: regular rate - Extremities Exam Extremities exam: Present: full ROM - Back Exam Back exam: Present: full ROM - Neurological Exam Neurological exam: Present: alert, oriented X3, normal gait - Psychiatric Psychiatric exam: Present: normal affect, normal mood - Skin Skin exam: Present: warm, dry, intact, rash (Diffuse papular rash noted to the arms legs and abdomen; no surrounding induration or cellulitic changes noted; no drainage noted; some excoriation houes noted) ED Course Vital Signs 08/27/20 14:40 Temperature 98.7 F Pulse Rate 73 Respiratory 18 Rate Blood Pressure 119/71 O2 Sat by Pulse 100 Oximetry ED Medical Decision Making - Medical Decision Making 30-year-old -[place] female patient presents with complaints of diffuse itchy rash x4 days. She denies any recent hotel stays, however states she was discharged from the hospital about 5 days ago after giving . She denies any changes in her products, fever/chills/sweats, cough, shortness of breath, or drainage from the rash. She has not tried any OTC medications for his symptoms per patient. She states her may possibly have a rash, however she is unsure. Contact dermatitis versus scabies. We will treat for both. Recommend patient have her seen by her media marketing coordinator within the next day. Also discussed need for home treatment with scabies. Her vitals are normal, she is well- appearing, she is stable for discharge home. Strict return precautions were discussed in detail with patient who verbalizes understanding. Critical care attestation.: If time is entered above; I have spent that time in minutes in the direct care of this critically ill patient, excluding procedure time. ED Disposition Clinical Impression: Allergic dermatitis Disposition: DC-01 TO HOME OR SELFCARE Is pt being admited?: No Condition: Stable Instructions: Contact Dermatitis, Scabies, Adult Prescriptions: Permethrin 5% [Acticin 5% CREAM] 1 applicatio TP ONCE #1 tube Loratadine [Claritin] 10 mg PO QDAY PRN #10 tablet PRN Reason: Itching Famotidine [Pepcid] 20 mg PO BID PRN #20 tablet PRN Reason: Itching Triamcinolone Acetonide 15 gm TP TID PRN 7 Days #2 tube PRN Reason: Itching Referrals: PRIMARY CARE, [Referring] - 3-5 Days
== END 2020-08-27 16:02 | disposition home or self-care (01) ==
LOC: ED 14:07
DX: L23.9 Allergic contact dermatitis, unspecified cause (principal); Z79.899 Other long term (current) drug therapy
CPT/HCPCS: 99282